=== PATIENT | male | born 1955 | race Caucasian/White ===

== ENCOUNTER → 2023-03-28 11:08 | Outpatient (REF) | payer MEDICARE, BC, SELFPAY | LOC: RCS 11:08 | PROVIDERS: ATTENDING PHYSICIAN Family Medicine | DX: R60.0 Localized edema (principal); R63.5 Abnormal weight gain; I10 Essential (primary) hypertension; R07.9 Chest pain, unspecified | CPT/HCPCS: 93306 ==

== ENCOUNTER → 2023-12-21 11:31 | Outpatient (REF) | payer MEDICARE, BC, SELFPAY | LOC: HWRAD 11:31 | PROVIDERS: ATTENDING PHYSICIAN Family Medicine | DX: Z87.891 Personal history of nicotine dependence (principal) | CPT/HCPCS: 71271 ==

== ENCOUNTER 2024-03-14 06:32 | Day surgery (SDC) | payer MEDICARE, BC, SELFPAY | END 2024-03-14 11:01 | disposition home or self-care (01) | LOC: GI 06:32 | PROVIDERS: ATTENDING PHYSICIAN Internal Medicine Gastroenterology | DX: Z12.11 Encounter for screening for malignant neoplasm of colon (principal); D12.3 Benign neoplasm of transverse colon; D12.5 Benign neoplasm of sigmoid colon; K57.30 Diverticulosis of large intestine without perforation or abscess without bleeding; D12.8 Benign neoplasm of rectum; Z86.0100 Personal history of colon polyps, unspecified | CPT/HCPCS: 45385; 45381; 88305 ==

== ENCOUNTER → 2024-06-22 09:33 | Outpatient (REF) | payer MEDICARE, BC, SELFPAY | LOC: RST 09:33 | PROVIDERS: ATTENDING PHYSICIAN Family Medicine | DX: R13.12 Dysphagia, oropharyngeal phase (principal) | CPT/HCPCS: 74230; 92611 ==

== ENCOUNTER 2024-08-31 06:20 | Day surgery (SDC) | payer MEDICARE, BC, SELFPAY | END 2024-08-31 11:22 | disposition home or self-care (01) | LOC: GI 06:20 | PROVIDERS: ATTENDING PHYSICIAN Internal Medicine Gastroenterology | DX: Z09 Encounter for follow-up examination after completed treatment for conditions other than malignant neoplasm (principal); K64.8 Other hemorrhoids; K62.89 Other specified diseases of anus and rectum; Z98.890 Other specified postprocedural states; Z86.0101 Personal history of adenomatous and serrated colon polyps; K57.30 Diverticulosis of large intestine without perforation or abscess without bleeding | CPT/HCPCS: 45378 ==

== ENCOUNTER → 2024-12-21 12:58 | Outpatient (REF) | payer MEDICARE, BC, SELFPAY | LOC: HWRAD 12:58 | PROVIDERS: ATTENDING PHYSICIAN Family Medicine | DX: Z87.891 Personal history of nicotine dependence (principal) | CPT/HCPCS: 71271 ==

== ENCOUNTER → 2025-01-12 14:56 | Outpatient (REF) | payer MEDICARE, BC, SELFPAY | LOC: RSP 14:56 | PROVIDERS: ATTENDING PHYSICIAN Family Medicine | DX: J44.9 Chronic obstructive pulmonary disease, unspecified (principal); F17.210 Nicotine dependence, cigarettes, uncomplicated | CPT/HCPCS: 88738; 94060; 94727; 94729 ==